=== PATIENT | female | born 1980 | race Caucasian/White ===

== ENCOUNTER 2023-04-26 12:23 | Emergency (ER) | payer OTHER ==
[~2023-04-26] VITALS: Ht 167.6 cm; Wt 77.1 kg
[2023-04-26] MEDS ORDERED: BACTRIM DS TAB1 EACH PO (15:47)
[2023-04-26] MEDS ORDERED: AMOX-CLAV 875-1 EAC1 PO (15:50)
== END 2023-04-26 15:54 | disposition home or self-care (01) ==
LOC: ER 12:23
DX: S61.442A Puncture wound with foreign body of left hand, initial encounter (principal); W45.8XXA Other foreign body or object entering through skin, initial encounter; W26.8XXA Contact with other sharp object(s), not elsewhere classified, initial encounter; Y93.89 Activity, other specified; Y92.89 Other specified places as the place of occurrence of the external cause